=== PATIENT | male | born 1950 | race Caucasian/White ===

== ENCOUNTER → 2024-03-08 08:01 | Outpatient (REF) | payer MEDICARE, OTHER, SELFPAY | LOC: RAD 08:01 | PROVIDERS: FAMILY PHYSICIAN Family Medicine | DX: R20.9 Unspecified disturbances of skin sensation (principal) | CPT/HCPCS: 93922; 93925 ==

== ENCOUNTER → 2024-03-22 06:24 | Day surgery (SDC) | payer MEDICARE, OTHER, SELFPAY | LOC: GI 06:24 | PROVIDERS: ATTENDING PHYSICIAN Internal Medicine Gastroenterology | DX: K63.5 Polyp of colon (principal); K64.8 Other hemorrhoids; R19.5 Other fecal abnormalities | CPT/HCPCS: 45385; 88305 ==